=== PATIENT | female | born 1980 | race Caucasian/White ===

== ENCOUNTER → 2016-08-13 | Outpatient (CLI) | payer OTHER ==
[2016-06-28 16:50] VITALS: BP 122/80
[~2016-08-13] MED LIST: CIPR500T94 PO; HYDR-971 PO; IBUP200C PO; LISD30CA4 PO; METR500T PO; RISP1TAB51 PO; ZOLP5TAB PO
--- NOTE | 2016-08-13 09:33 | RAD ---
Chest, 2 views, 08/13/2016: History: Cough, chest congestion Comparison is made to a study from 07/01/2016. The heart size and pulmonary vascularity are normal. The lungs are clear. There is no evidence of pleural fluid. IMPRESSION: No acute cardiopulmonary abnormality is detected.
== END | disposition home or self-care (01) ==
LOC: DXRADRC 09:21
PROVIDERS: ATTEND Physician Assistant Medical
DX: R09.89 Other specified symptoms and signs involving the circulatory and respiratory systems (principal); R07.81 Pleurodynia
CPT/HCPCS: 71020

== ENCOUNTER 2017-02-16 07:28 | Emergency (ER) | payer OTHER ==
[~2017-02-16] VITALS: Ht 157.5 cm; Wt 50.8 kg
[~2017-02-16 07:28] MED LIST changes: -IBUP200C PO; +IBUP200C6 PO; -LISD30CA4 PO; +LISD30CA5 PO; -RISP1TAB51 PO; +[UNRECOGNIZED DRUG - CODE] PO
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
[2017-02-16] MEDS ORDERED: IV NORMAL SALINE 1,000ML 1,000 ML IV SCH (07:33)
[2017-02-16] MEDS ORDERED: DIPH,PERTUSS(ACELL),TET PED/PF 0.5 ML VIAL VAX IM ONE (07:45)
[2017-02-16] MEDS ORDERED: DIPHTH,PERTUSS(ACELL),TET TOX 0.5 ML DISP.SYRIN. VAX IM ONE (08:00)
[2017-02-16 08:06] LABS: BASO # 0.1 x10^3/uL (0.0-0.2); BASO % 0 % (0-3); EOS # 0.2 x10^3/uL (0.0-0.7); EOS % 1 % (0-3); HEMATOCRIT 39.2 % (36.0-47.0); HEMOGLOBIN 13.8 g/dL (12.0-15.5); LYMPH # 3.6 x10^3/uL (1.0-4.8); LYMPH % 26 % (24-48); MEAN CORPUSCULAR HEMOGLOBIN 33 pg (25-35); MEAN CORPUSCULAR HGB CONC 35 g/dL (31-37); MEAN CORPUSCULAR VOLUME 93 fL (79-100); MONO # 1.5 x10^3/uL (0.0-1.1); MONO % 11 % (0-9); NEUT # 8.9 x10^3uL (1.8-7.7); NEUT % 62 % (31-73); PLATELET COUNT 598 x10^3/uL (140-400); RED BLOOD COUNT 4.24 x10^6/uL (3.50-5.40); RED CELL DISTRIBUTION WIDTH 13.4 % (11.5-14.5); WHITE BLOOD COUNT 14.2 x10^3/uL (4.0-11.0)
[2017-02-16 08:31] LABS: ALBUMIN 3.4 g/dL (3.4-5.0); CALCIUM 8.9 mg/dL (8.5-10.1); CREATININE 0.7 mg/dL (0.6-1.0); DIRECT BILIRUBIN 0.1 mg/dL (0.0-0.2); GFR 94.2; TOTAL BILIRUBIN 0.1 mg/dL (0.2-1.0); TOTAL PROTEIN 7.5 g/dL (6.4-8.2)
--- NOTE | 2017-02-16 08:44 | RAD ---
EXAM: Chest 2 views. HISTORY: Inferior vena cava, chest pain. COMPARISON: 08/13/2016. FINDINGS: Frontal and lateral views of the chest are obtained. There are no confluent infiltrates. There is no pneumothorax or pleural effusion. The heart is not enlarged. IMPRESSION: 1. No confluent infiltrates.
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
[2017-02-16] MEDS ORDERED: LIDOCAINE/EPI/TETRACAINE TOPICAL GEL 3 ML. TP ONE (09:15)
[2017-02-16 09:55] VITALS: BP 141/71
[2017-02-16] MEDS ORDERED: ACETAMINOPHEN 500 MG TABLET PO ONE (10:00)
[2017-02-16 10:26] LABS: COLOR,URINE YELLOW
[2017-02-16 10:27] LABS: AMORPHOUS SEDIMENT,UR PRESENT /HPF; BACTERIA,URINE FEW /HPF (0-FEW); BILIRUBIN,URINE NEG (NEG); CLARITY,URINE HAZY; GLUCOSE,URINE NEG (NEG); NITRITE,URINE NEG (NEG); RBC,URINE RARE /HPF (0-2); SQUAMOUS EPITHELIAL CELL,UR MOD /LPF; UROBILINOGEN,URINE 0.2 mg/dL (0.2 mg/dL); WBC,URINE RARE /HPF (0-4)
[2017-02-16 10:34] LABS: BARBITURATES NEG (NEG); BENZODIAZEPINES NEG (NEG); CANNABINOIDS NEG (NEG); COCAINE NEG (NEG); METHADONE NEG (NEG); OPIATES NEG (NEG); PHENCYCLIDINE NEG (NEG)
[2017-02-16 10:35] LABS: AMPHETAMINE/METHAMPHETAMINE POS (NEG)
--- NOTE | 2017-02-16 18:47 | EKG ---
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
== END 2017-02-16 10:48 | disposition other institution (70) ==
LOC: ER 07:28
DX: S01.01XA Laceration without foreign body of scalp, initial encounter (principal); M54.2 Cervicalgia; M25.512 Pain in left shoulder; F17.210 Nicotine dependence, cigarettes, uncomplicated; F12.10 Cannabis abuse, uncomplicated; F15.10 Other stimulant abuse, uncomplicated; V89.2XXA Person injured in unspecified motor-vehicle accident, traffic, initial encounter; Y93.89 Activity, other specified; Y99.8 Other external cause status; Y92.89 Other specified places as the place of occurrence of the external cause
CPT/HCPCS: 12001; 36415; 70450; 70486; 71020; 72125; 80048; 80076; 80307; 81001; 82553; 83690; 84484; 85025; 85610; 85730; 90471; 90715; 93005; 96360; 96361; 99285; G0480; G0479; J7030

== ENCOUNTER 2017-04-03 11:21 | Emergency (ER) | payer OTHER ==
[~2017-04-03] VITALS: Ht 157.5 cm; Wt 52.2 kg
[2017-04-03 11:38] VITALS: BP 111/73
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
== END 2017-04-03 11:49 | disposition home or self-care (01) ==
LOC: ER 11:21
DX: S01.01XD Laceration without foreign body of scalp, subsequent encounter (principal); F17.210 Nicotine dependence, cigarettes, uncomplicated; X58.XXXD Exposure to other specified factors, subsequent encounter
CPT/HCPCS: 99281

== ENCOUNTER → 2017-06-10 | Outpatient (CLI) | payer OTHER ==
--- NOTE | 2017-06-10 11:59 | RAD ---
Right foot, 2 views, 06/10/2017: History: Foot pain There are radiopacities related to a sock partially compromising the exam. No fracture or destructive bony lesion is seen. There is a slight hallux valgus deformity. IMPRESSION: No acute bony abnormality is detected.
== END | disposition home or self-care (01) ==
LOC: PMG 11:16
PROVIDERS: ATTEND Physician Assistant Medical
DX: M79.671 Pain in right foot (principal); M20.11 Hallux valgus (acquired), right foot; F17.200 Nicotine dependence, unspecified, uncomplicated
CPT/HCPCS: 73620

== ENCOUNTER → 2017-07-01 | Outpatient (CLI) | payer OTHER ==
--- NOTE | 2017-07-01 15:54 | RAD ---
2 views of the Chest 07/01/2017 2:00 AM Indication: CHEST CONGESTION Comparison: Chest radiograph February 16, 2017 Findings: There is no focal consolidation or infiltrate identified. There is no effusion or pneumothorax. The cardiomediastinal silhouette and pulmonary vasculature are within normal limits. No osseous abnormality is identified. Impression: No evidence of acute cardiopulmonary process.
== END | disposition home or self-care (01) ==
LOC: PMG 15:32
PROVIDERS: ATTEND Physician Assistant Medical
DX: R09.89 Other specified symptoms and signs involving the circulatory and respiratory systems (principal); F17.210 Nicotine dependence, cigarettes, uncomplicated
CPT/HCPCS: 71046

== ENCOUNTER 2017-08-19 13:22 | Emergency (ER) | payer OTHER ==
[~2017-08-19] VITALS: Ht 157.5 cm; Wt 53.6 kg
[~2017-08-19 13:22] MED LIST changes: +RISP1TAB10 PO; -[UNRECOGNIZED DRUG - CODE] PO
--- NOTE | 2017-08-19 14:19 | PHYS DOC ---
Past History Past Medical History: Bipolar Past Surgical History: Tonsillectomy Smoking: Cigarettes, Greater than 1 pack/day Alcohol Use: Occasionally Drug Use: None Adult General Chief Complaint Chief Complaint: MEDICAL CLEARANCE HPI HPI Patient is a 36 year old F who presents for medical screening prior to being admitted for drug rehabilitation. Ramone states that she is a meth user and she is looking for help. She was told to come to the emergency room for medical screening. She currently denies any abnormal symptoms. Review of Systems Review of Systems Constitutional: Denies fever or chills [] Eyes: Denies change in visual acuity, redness, or eye pain [] HENT: Denies nasal congestion or sore throat [] Respiratory: Denies cough or shortness of breath [] Cardiovascular: No additional information not addressed in HPI [] GI: Denies abdominal pain, nausea, vomiting, bloody stools or diarrhea [] : Denies dysuria or hematuria [] Musculoskeletal: Denies back pain or joint pain [] Integument: Denies rash or skin lesions [] Neurologic: Denies headache, focal weakness or sensory changes [] Endocrine: Denies polyuria or polydipsia [] All other systems were reviewed and found to be within normal limits, except as documented in this note. Family History Family History No pertinent family medical history was reported Current Medications Current Medications Current medications were reviewed Allergies Allergies Allergies Coded Allergies Type Severity Reaction Last Updated Verified No Known Drug Allergies 07/16/13 No Physical Exam Physical Exam Constitutional: Well developed, well nourished, no acute distress, non-toxic appearance. [] HENT: Normocephalic, atraumatic, Eyes: EOMI, conjunctiva normal, no discharge. [] Neck: Normal range of motion, no tenderness, supple, no stridor. [] Cardiovascular:Heart rate regular rhythm Lungs & Thorax: Bilateral breath sounds clear to auscultation [] Abdomen: Bowel sounds normal, soft, no tenderness, no masses, no pulsatile masses. [] Skin: Warm, dry, no erythema, no rash. [] Extremities: No tenderness, no cyanosis, no clubbing, ROM intact, no edema. [] Neurologic: Alert and oriented X 3, normal motor function, normal sensory function, no focal deficits noted. [] Psychologic: Affect normal, judgement normal, mood normal. [] Current Patient Data Vital Signs Vital Signs Date Time Temp Pulse Resp B/P (MAP) Pulse Ox O2 Delivery O2 Flow Rate FiO2 08/19/17 13:22 98.3 73 18 98 Room Air Lab Results Laboratory Tests Test 08/19/17 14:40 Urine Collection Type Void Urine Color Yellow Urine Clarity Hazy Urine pH 7.0 Urine Specific [place] 1.020 Urine Protein Trace (NEG-TRACE) Urine Glucose (UA) Neg mg/dL (NEG) Urine Ketones (Stick) Neg mg/dL (NEG) Urine Blood Neg (NEG) Urine Nitrite Neg (NEG) Urine Bilirubin Neg (NEG) Urine Urobilinogen Dipstick 1 mg/dL (0.2 mg/dL) Urine Leukocyte Esterase Neg (NEG) Urine RBC Rare /HPF (0-2) Urine WBC Rare /HPF (0-4) Urine Squamous Epithelial Cells Many /LPF Urine Bacteria 0 /HPF (0-FEW) Urine Mucus Mod /LPF EKG EKG Normal sinus rhythm Radiology/Procedures Radiology/Procedures [] Course & Med Decision Making Course & Med Decision Making Pertinent Labs and Imaging studies reviewed. (See chart for details) [] Dragon Disclaimer Dragon Disclaimer This electronic medical record was generated, in whole or in part, using a voice recognition dictation system. Departure Departure: Impression: Primary Impression: Encounter for medical screening examination Disposition: HOME, SELF-CARE Condition: STABLE Referrals: SAMARIA HASTINGS (PCP) Patient Instructions: Medical Screening Exam Additional Instructions: Ramone was seen in the emergency department for medical screening exam. No emergency medical condition was found on history or physical exam. She did have a normal EKG and urinalysis. She was advised to follow-up with her primary care doctor as soon as possible for further management. She was also advised to return the emergency room if she develops new or worsening symptoms. GLORIA MARIA MD Aug 19, 2017 14:19
[2017-08-19 14:56] LABS: BACTERIA,URINE 0 /HPF (0-FEW); BILIRUBIN,URINE NEG (NEG); CLARITY,URINE HAZY; COLOR,URINE YELLOW; GLUCOSE,URINE NEG (NEG); NITRITE,URINE NEG (NEG); RBC,URINE RARE /HPF (0-2); SQUAMOUS EPITHELIAL CELL,UR MANY /LPF; UROBILINOGEN,URINE 1 mg/dL (0.2 mg/dL); WBC,URINE RARE /HPF (0-4)
[2017-08-19 15:10] VITALS: BP 113/62
--- NOTE | 2017-08-19 16:12 | EKG ---
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
== END 2017-08-19 15:10 | disposition home or self-care (01) ==
LOC: ER 13:22
DX: F31.9 Bipolar disorder, unspecified (principal); F17.210 Nicotine dependence, cigarettes, uncomplicated; Z00.00 Encounter for general adult medical examination without abnormal findings
CPT/HCPCS: 81001; 93005; 99285-25

== ENCOUNTER 2017-10-02 20:52 | Emergency (ER) | payer OTHER ==
[~2017-10-02] VITALS: Ht 157.5 cm; Wt 52.2 kg
[2017-10-02] MEDS ORDERED: IOHEXOL 300 MG/ML 75 ML VIAL. IV ONE (21:15)
[2017-10-02] MEDS: IV NORMAL SALINE 1,000ML 1,000 ML IV SCH ×2 (21:15→22:15)
[2017-10-02 22:14] LABS: BASO # 0.1 x10^3/uL (0.0-0.2); BASO % 1 % (0-3); EOS # 0.2 x10^3/uL (0.0-0.7); EOS % 2 % (0-3); HEMOGLOBIN 12.1 g/dL (12.0-15.5); LYMPH # 3.4 x10^3/uL (1.0-4.8); LYMPH % 28 % (24-48); MEAN CORPUSCULAR HEMOGLOBIN 32 pg (25-35); MEAN CORPUSCULAR HGB CONC 35 g/dL (31-37); MEAN CORPUSCULAR VOLUME 94 fL (79-100); MONO # 1.1 x10^3/uL (0.0-1.1); MONO % 9 % (0-9); NEUT # 7.6 x10^3uL (1.8-7.7); NEUT % 62 % (31-73); PLATELET COUNT 344 x10^3/uL (140-400); RED BLOOD COUNT 3.73 x10^6/uL (3.50-5.40); RED CELL DISTRIBUTION WIDTH 13.4 % (11.5-14.5); WHITE BLOOD COUNT 12.4 x10^3/uL (4.0-11.0)
[2017-10-02 22:22] LABS: ALBUMIN 3.6 g/dL (3.4-5.0); ALBUMIN/GLOBULIN RATIO 1.3 (1.0-1.7); CALCIUM 8.2 mg/dL (8.5-10.1); CREATININE 0.8 mg/dL (0.6-1.0); GFR 80.3; TOTAL BILIRUBIN 0.2 mg/dL (0.2-1.0); TOTAL PROTEIN 6.4 g/dL (6.4-8.2)
[2017-10-02 22:27] LABS: BACTERIA,URINE MANY /HPF (0-FEW); BILIRUBIN,URINE NEG (NEG); CLARITY,URINE CLOUDY; COLOR,URINE YELLOW; GLUCOSE,URINE NEG (NEG); NITRITE,URINE POS (NEG); SQUAMOUS EPITHELIAL CELL,UR MOD /LPF; UROBILINOGEN,URINE 0.2 mg/dL (0.2 mg/dL)
--- NOTE | 2017-10-02 23:05 | RAD ---
Exam performed: CT scan of the abdomen and pelvis without contrast. Clinical Indication: Chronic flank pain. Date of Service: 10/02/2017 . Comparison: None available Technique: Contiguous helical acquisitions are obtained through the abdomen and pelvis during intravenous administration of 75 cc of Omnipaque 300. Oral contrast was not given. Sagittal and coronal reformatted images are obtained and reviewed. CT abdomen findings: The lung bases are essentially clear. The visualized heart is normal. The liver, spleen, pancreas and gallbladder appear normal. Both adrenal glands and bilateral kidneys are normal in size. There is no nephrolithiasis or hydronephrosis. No perinephric stranding is seen. Aorta is normal in caliber. No retroperitoneal or mesenteric lymphadenopathy. Small and large bowel loops are nondilated and unremarkable. Scattered stool throughout the colon. CT pelvis findings: The pelvic bowel loops are nondilated and unremarkable. The urinary bladder is decompressed. The uterus is likely surgically absent. There is a 3.1 cm left ovarian cyst. No fluid collections or pelvic lymphadenopathy. Bones are unremarkable. Impression: No acute intra-abdominal or pelvic process noted. 3.1 cm left ovarian cyst, likely physiological Diffuse scattered stool throughout the colon. Correlate clinically for constipation PQRS Compliance Statement: One or more of the following individualized dose reduction techniques were utilized for this examination: 1. Automated exposure control 2. Adjustment of the mA and/or kV according to patient size 3. Use of iterative reconstruction technique Electronically signed by: Mary Bee MD (10/02/2017 11:02 PM) [facility]
[2017-10-02] MEDS ORDERED: CEPH-264 PO (23:23)
--- NOTE | 2017-10-02 23:24 | PHYS DOC ---
Past History Past Medical History: Bipolar, Depression, Other Past Surgical History: Tonsillectomy, Other Smoking: Cigarettes, Greater than 1 pack/day Alcohol Use: Occasionally Drug Use: Methamphetamine Adult General Chief Complaint Chief Complaint: ABDOMINAL PAIN HPI HPI 37-year-old female with a history of chronic abdominal pain as well as methamphetamine abuse now presents to the emergency department complaining of gradual onset of abdominal pain typical for her. Patient has no vomiting or diarrhea. She denies flank pain. No fevers chills sweats or shaking chills. Pain is not worse with movement. Abdomen is not distended. She's had a partial hysterectomy previously. Denies right upper quadrant or right lower quadrant pain Review of Systems Review of Systems Constitutional: Denies fever or chills [] Eyes: Denies change in visual acuity, redness, or eye pain [] HENT: Denies nasal congestion or sore throat [] Respiratory: Denies cough or shortness of breath [] Cardiovascular: No additional information not addressed in HPI [] GI: Denies abdominal pain, nausea, vomiting, bloody stools or diarrhea [] : Denies dysuria or hematuria [] Musculoskeletal: Denies back pain or joint pain [] Integument: Denies rash or skin lesions [] Neurologic: Denies headache, focal weakness or sensory changes [] Endocrine: Denies polyuria or polydipsia [] All other systems were reviewed and found to be within normal limits, except as documented in this note. Current Medications Current Medications Current Medications Medications (Trade) Dose Ordered Sig/Timo Start Time Stop Time Status Last Admin Dose Admin Iohexol (Omnipaque 300 Mg/ml) 75 ml 1X ONCE 10/02/17 21:15 10/02/17 21:16 DC 10/02/17 22:26 75 ML Sodium Chloride 1,000 ml @ 1,000 mls/hr Q1H 10/02/17 21:15 10/02/17 21:15 1,000 MLS/HR Allergies Allergies Allergies Coded Allergies Type Severity Reaction Last Updated Verified Penicillins Allergy Unknown 08/19/17 Yes olanzapine Allergy Unknown 08/19/17 Yes sulfamethoxazole Allergy Unknown 08/19/17 Yes trimethoprim Allergy Unknown 08/19/17 Yes Uncoded Allergies Type Severity Reaction Last Updated Verified tajik rice Allergy Unknown 08/19/17 Physical Exam Physical Exam Patient is alert and communicative but mildly restless appearing possibly consistent with her history of methamphetamine abuse, minimal suprapubic tenderness no guarding or rebound no mass or megaly. Nontender McBurney's point and negative [place] sign. No CVA tenderness. No epigastric tenderness, bowel sounds Constitutional: Well developed, well nourished, no acute distress, non-toxic appearance. [] HENT: Normocephalic, atraumatic, bilateral external ears normal, oropharynx moist, no oral exudates, nose normal. [] Eyes: PERRLA, EOMI, conjunctiva normal, no discharge. [] Neck: Normal range of motion, no tenderness, supple, no stridor. [] Cardiovascular:Heart rate regular rhythm, no murmur [] Lungs & Thorax: Bilateral breath sounds clear to auscultation [] Abdomen as above, no masses, no pulsatile masses. [] Skin: Warm, dry, no erythema, no rash. [] Back: No tenderness, no CVA tenderness. [] Extremities: No tenderness, no cyanosis, no clubbing, ROM intact, no edema. [] Neurologic: Alert and oriented X 3, normal motor function, normal sensory function, no focal deficits noted. [] Psychologic: Affect is mildly anxious Current Patient Data Lab Results Laboratory Tests Test 10/02/17 21:52 White Blood Count 12.4 x10^3/uL (4.0-11.0) H Red Blood Count 3.73 x10^6/uL (3.50-5.40) Hemoglobin 12.1 g/dL (12.0-15.5) Hematocrit 35.0 % (36.0-47.0) L Mean Corpuscular Volume 94 fL (79-100) Mean Corpuscular Hemoglobin 32 pg (25-35) Mean Corpuscular Hemoglobin Concent 35 g/dL (31-37) Red Cell Distribution Width 13.4 % (11.5-14.5) Platelet Count 344 x10^3/uL (140-400) Neutrophils (%) (Auto) 62 % (31-73) Lymphocytes (%) (Auto) 28 % (24-48) Monocytes (%) (Auto) 9 % (0-9) Eosinophils (%) (Auto) 2 % (0-3) Basophils (%) (Auto) 1 % (0-3) Neutrophils # (Auto) 7.6 x10^3uL (1.8-7.7) Lymphocytes # (Auto) 3.4 x10^3/uL (1.0-4.8) Monocytes # (Auto) 1.1 x10^3/uL (0.0-1.1) Eosinophils # (Auto) 0.2 x10^3/uL (0.0-0.7) Basophils # (Auto) 0.1 x10^3/uL (0.0-0.2) Urine Collection Type Unknown Urine Color Yellow Urine Clarity Cloudy Urine pH 6.5 Urine Specific [place] 1.015 Urine Protein Neg (NEG-TRACE) Urine Glucose (UA) Neg mg/dL (NEG) Urine Ketones (Stick) Neg mg/dL (NEG) Urine Blood Neg (NEG) Urine Nitrite Pos (NEG) Urine Bilirubin Neg (NEG) Urine Urobilinogen Dipstick 0.2 mg/dL (0.2 mg/dL) Urine Leukocyte Esterase Neg (NEG) Urine RBC 1-2 /HPF (0-2) Urine WBC 11-20 /HPF (0-4) Urine Squamous Epithelial Cells Mod /LPF Urine Bacteria Many /HPF (0-FEW) Sodium Level 139 mmol/L (136-145) Potassium Level 4.0 mmol/L (3.5-5.1) Chloride Level 105 mmol/L (98-107) Carbon Dioxide Level 24 mmol/L (21-32) Anion Gap 10 (6-14) Blood Urea Nitrogen 10 mg/dL (7-20) Creatinine 0.8 mg/dL (0.6-1.0) Estimated GFR (Cockcroft-Gault) 80.3 BUN/Creatinine Ratio 13 (6-20) Glucose Level 103 mg/dL (70-99) H Calcium Level 8.2 mg/dL (8.5-10.1) L Total Bilirubin 0.2 mg/dL (0.2-1.0) Aspartate Amino Transferase (AST) 12 U/L (15-37) L Alanine Aminotransferase (ALT) 20 U/L (14-59) Alkaline Phosphatase 67 U/L (46-116) Total Protein 6.4 g/dL (6.4-8.2) Albumin 3.6 g/dL (3.4-5.0) Albumin/Globulin Ratio 1.3 (1.0-1.7) Lipase 216 U/L (73-393) EKG EKG [] Radiology/Procedures Radiology/Procedures [] Course & Med Decision Making Course & Med Decision Making Pertinent Labs and Imaging studies reviewed. (See chart for details) []Signs and symptoms consistent with exacerbation of patient's chronic abdominal pain. She does have a chronic leukocytosis and her white blood cell count today is unremarkable compared with prior results. Labs are otherwise benign. Urinalysis consistent with infection and patient will be prescribed an antibiotic. CT abdomen and pelvis shows signs of constipation as well as 3 fragments of your left ovarian cyst. She stable and well-appearing. Patient is able ambulate around the emergency department and in a room with no apparent discomfort whatsoever. No further workup or treatment is indicated. Patient agrees with outpatient follow-up with her doctor tomorrow and strict return precautions given Dragon Disclaimer Dragon Disclaimer This electronic medical record was generated, in whole or in part, using a voice recognition dictation system. Departure Departure: Impression: Primary Impression: Abdominal pain Additional Impressions: Constipation Hx of leukocytosis Left ovarian cyst Urinary tract infection Disposition: 01 HOME, SELF-CARE Condition: GOOD Referrals: AILYN MCMAHON APRN (PCP) Patient Instructions: Abdominal Pain Additional Instructions: You have no evidence of abdominal emergency today. The CAT scan of her abdomen shows some mild constipation. Consider [id number] treatments such as MiraLAX or mineral oil and eat a high-fiber diet to optimize her bowel habits. Your white blood cell count was mildly elevated which it has been in the past. You have a 3.1 cm left ovarian cyst. You been given a copy of her CT result to follow up with your doctor to discuss these incidental findings and arrange further workup as needed. Your urinalysis suggests that he may have urinary tract infection see you been given a prescription for Keflex to address this. Finish that as prescribed. Follow-up with your doctor tomorrow and return immediately for new severe worsening symptoms Scripts Cephalexin (KEFLEX) 500 Mg Capsule 500 MG PO QID for 7 Days, #28 CAP Prov: CORWIN AMOS MD 10/02/17 Problem Qualifiers CORWIN AMOS MD October 02, 2017 23:24
[2017-10-02] MEDS ORDERED: CEPHALEXIN 250 MG CAPSULE PO ONE (23:45)
== END 2017-10-02 23:35 | disposition home or self-care (01) ==
LOC: ER 20:52
DX: N39.0 Urinary tract infection, site not specified (principal); K59.00 Constipation, unspecified; N83.202 Unspecified ovarian cyst, left side; G89.29 Other chronic pain; F31.9 Bipolar disorder, unspecified; F17.210 Nicotine dependence, cigarettes, uncomplicated; F15.10 Other stimulant abuse, uncomplicated; Z88.0 Allergy status to penicillin; Z88.1 Allergy status to other antibiotic agents; Z88.2 Allergy status to sulfonamides; Z88.8 Allergy status to other drugs, medicaments and biological substances
CPT/HCPCS: 36415; 74177; 80053; 81001; 83690; 85025; 99285; Q9967; J7030

== ENCOUNTER 2017-10-19 15:40 | Emergency (ER) | payer OTHER ==
[~2017-10-19] VITALS: Ht 157.5 cm; Wt 54.0 kg
[~2017-10-19 15:40] MED LIST changes: +CEPH-264 PO
[2017-10-19] MEDS ORDERED: HYDROcodon/IBUPROFEN 7.5/200MG 1 TAB TABLET PO ONE (18:00)
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
[2017-10-19 18:10] VITALS: BP 121/72
== END 2017-10-19 18:10 | disposition home or self-care (01) ==
LOC: ER 15:40
DX: S60.451A Superficial foreign body of left index finger, initial encounter (principal); F31.9 Bipolar disorder, unspecified; F17.210 Nicotine dependence, cigarettes, uncomplicated; F15.10 Other stimulant abuse, uncomplicated; Z88.0 Allergy status to penicillin; Z88.1 Allergy status to other antibiotic agents; Z88.2 Allergy status to sulfonamides; Z88.8 Allergy status to other drugs, medicaments and biological substances; X58.XXXA Exposure to other specified factors, initial encounter; Y93.89 Activity, other specified; Y99.8 Other external cause status; Y92.89 Other specified places as the place of occurrence of the external cause
CPT/HCPCS: 99284

== ENCOUNTER 2018-04-06 17:57 | Emergency (ER) | payer OTHER ==
[~2018-04-06] VITALS: Ht 157.5 cm; Wt 50.3 kg
[~2018-04-06 17:57] MED LIST changes: +IBUP-1390 PO; -IBUP200C6 PO
[2018-04-06] MEDS ORDERED: LORA2TAB89 PO (19:17)
--- NOTE | 2018-04-06 19:17 | PHYS DOC ---
Past History Past Medical History: Anxiety, Bipolar, Depression Past Surgical History: , Hysterectomy, Tonsillectomy, Tubal ligation Smoking: Cigarettes, Greater than 1 pack/day Alcohol Use: Occasionally Drug Use: Methamphetamine Adult General Chief Complaint Chief Complaint: WITHDRAWL HPI HPI Patient is a 37 year old female who presents to the emergency department for medical evaluation. The patient states that she was instructed to come to the emergency department for medical clearance. The patient has been accepted to [facility] in [place], [place]. Patient states that she has history of alcohol and methamphetamine abuse area patient states she last used methamphetamine at 0230 this morning and states that she last drank alcohol proximate 1 hour ago. Patient states that she has been in a treatment center in the past and has history of what was reported as withdrawal seizure. For this reason the patient was instructed to come to the emergency department for medical evaluation prior to acceptance. Patient denies any somatic symptoms at this time. Review of Systems Review of Systems Constitutional: Denies fever or chills [] Eyes: Denies change in visual acuity, redness, or eye pain [] HENT: Denies nasal congestion or sore throat [] Respiratory: Denies cough or shortness of breath [] Cardiovascular: Denies chest pain or edema[] GI: Denies abdominal pain, nausea, vomiting, bloody stools or diarrhea [] : Denies dysuria or hematuria [] Musculoskeletal: Denies back pain or joint pain [] Integument: Denies rash or skin lesions [] Neurologic: Denies headache, focal weakness or sensory changes [] All other systems were reviewed and found to be within normal limits, except as documented in this note. Allergies Allergies Allergies Coded Allergies Type Severity Reaction Last Updated Verified Penicillins Allergy Unknown 08/19/17 Yes olanzapine Allergy Unknown 08/19/17 Yes sulfamethoxazole Allergy Unknown 08/19/17 Yes trimethoprim Allergy Unknown 08/19/17 Yes Uncoded Allergies Type Severity Reaction Last Updated Verified pitcairn islander rice Allergy Unknown 08/19/17 Physical Exam Physical Exam Constitutional: Well developed, well nourished, no acute distress, non-toxic appearance. [] HENT: Normocephalic, atraumatic, bilateral external ears normal, oropharynx moist, no oral exudates, nose normal. [] Eyes: PERRLA, EOMI, conjunctiva normal, no discharge. [] Neck: Normal range of motion, no tenderness, supple, no stridor. [] Cardiovascular:Heart rate regular rhythm, no murmur [] Lungs & Thorax: Bilateral breath sounds clear to auscultation [] Abdomen: Bowel sounds normal, soft, no tenderness, no masses, no pulsatile masses. [] Skin: Warm, dry, no erythema, no rash. [] Back: No tenderness, no CVA tenderness. [] Extremities: No tenderness, no cyanosis, no clubbing, ROM intact, no edema. [] Neurologic: Alert and oriented X 3, normal motor function, normal sensory function, no focal deficits noted. [] Current Patient Data Vital Signs Vital Signs Date Time Temp Pulse Resp B/P (MAP) Pulse Ox O2 Delivery O2 Flow Rate FiO2 04/06/18 18:20 98.5 100 20 99 Room Air Lab Results Not performed EKG EKG Not performed[] Radiology/Procedures Radiology/Procedures Not performed[] Course & Med Decision Making Course & Med Decision Making Pertinent Labs and Imaging studies reviewed. (See chart for details) Patient appears nontoxic at this time. Due to history of withdrawal seizure, I have prescribed the patient Ativan. This was confirmed to be able to be administered to the patient while in her treatment center. Patient was medically cleared to be accepted to her treatment center and will be taken by a close friend to the treatment Center upon discharge. Advised return to emergency department for any worsening symptoms. Patient was understanding and agreement with treatment plan. Dragon Disclaimer Dragon Disclaimer This electronic medical record was generated, in whole or in part, using a voice recognition dictation system. Departure Departure: Impression: Primary Impression: Alcoholism Additional Impression: Methamphetamine abuse Disposition: 01 HOME, SELF-CARE Referrals: PCP,MARY (PCP) Patient Instructions: Alcohol Withdrawal, Chronic Alcoholism, Substance Abuse- Brief Additional Instructions: You have been instructed to fill the prescription that was given to you at today 's visit immediately after discharge. This will need to be taken to your treatment Center at [facility] and be given as needed for your symptoms. Please return to emergency department for any worsening symptoms. Scripts Lorazepam (ATIVAN) 2 Mg Tablet 2 MG PO TID PRN for ANXIETY / AGITATION, #30 TAB Prov: SHARRI GAMING MD 04/06/18 Problem Qualifiers SHARRI GAMING MD Apr 06, 2018 19:17
[2018-04-06 19:20] VITALS: BP 130/81
== END 2018-04-06 19:21 | disposition home or self-care (01) ==
LOC: ER 17:57
DX: F10.20 Alcohol dependence, uncomplicated (principal); F15.10 Other stimulant abuse, uncomplicated; F41.9 Anxiety disorder, unspecified; F31.9 Bipolar disorder, unspecified; F17.210 Nicotine dependence, cigarettes, uncomplicated; Z88.0 Allergy status to penicillin; Z88.1 Allergy status to other antibiotic agents; Z88.2 Allergy status to sulfonamides; Z88.8 Allergy status to other drugs, medicaments and biological substances
CPT/HCPCS: 99283

== ENCOUNTER 2018-05-16 14:16 | Emergency (ER) | payer OTHER ==
[~2018-05-16] VITALS: Ht 157.5 cm; Wt 49.4 kg
[~2018-05-16 14:16] MED LIST changes: +HYDR-3165 PO; -HYDR-971 PO; +LORA2TAB89 PO
[2018-05-16] MEDS ORDERED: [UNRECOGNIZED DRUG - CODE] TP (14:55)
[2018-05-16] MEDS ORDERED: ACET-704 PO (14:55)
[2018-05-16] MEDS: LIDOCAINE 2% VISCOUS 15 ML SOLUTION. SWSW ONE (14:55)
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
[2018-05-16] MEDS: traMADol 50 MG TABLET PO ONE (15:02)
[2018-05-16 15:45] VITALS: BP 141/71
== END 2018-05-16 15:46 | disposition home or self-care (01) ==
LOC: ER 14:16
DX: T24.211A Burn of second degree of right thigh, initial encounter (principal); F41.9 Anxiety disorder, unspecified; F31.9 Bipolar disorder, unspecified; F17.210 Nicotine dependence, cigarettes, uncomplicated; Z88.0 Allergy status to penicillin; Z88.1 Allergy status to other antibiotic agents; Z88.8 Allergy status to other drugs, medicaments and biological substances; X08.8XXA Exposure to other specified smoke, fire and flames, initial encounter; Y93.89 Activity, other specified; Y92.091 Bathroom in other non-institutional residence as the place of occurrence of the external cause; Y99.8 Other external cause status
CPT/HCPCS: 99283

== ENCOUNTER 2018-05-18 12:17 | Emergency (ER) | payer OTHER ==
[~2018-05-18] VITALS: Ht 157.5 cm; Wt 49.4 kg
[~2018-05-18 12:17] MED LIST changes: +ACET-704 PO; +[UNRECOGNIZED DRUG - CODE] TP
[2018-05-18 12:37] VITALS: BP 99/45
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
== END 2018-05-18 13:01 | disposition home or self-care (01) ==
LOC: ER 12:52
DX: T24.201D Burn of second degree of unspecified site of right lower limb, except ankle and foot, subsequent encounter (principal); F41.9 Anxiety disorder, unspecified; J45.909 Unspecified asthma, uncomplicated; F31.9 Bipolar disorder, unspecified; G43.909 Migraine, unspecified, not intractable, without status migrainosus; F17.210 Nicotine dependence, cigarettes, uncomplicated; Z88.0 Allergy status to penicillin; Z88.1 Allergy status to other antibiotic agents; Z88.2 Allergy status to sulfonamides; Z88.8 Allergy status to other drugs, medicaments and biological substances; X08.8XXD Exposure to other specified smoke, fire and flames, subsequent encounter
CPT/HCPCS: 99281; 99282

== ENCOUNTER 2018-06-28 19:36 | Inpatient (IN) | payer OTHER ==
[~2018-06-28] VITALS: Ht 157.5 cm; Wt 50.0 kg
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
[2018-06-28] MEDS ORDERED: IV RINGERS SOLUTION,LACTATED 1,000 ML IV SCH (20:18)
[2018-06-28] MEDS ORDERED: VANCOMYCIN 1 GM in IV NORMAL SALINE 250ML 250 ML IV ONE (20:30)
[2018-06-28 20:41] LABS: BASO # 0.1 x10^3/uL (0.0-0.2); BASO % 0 % (0-3); EOS # 0.2 x10^3/uL (0.0-0.7); EOS % 1 % (0-3); HEMATOCRIT 35.8 % (36.0-47.0); HEMOGLOBIN 12.2 g/dL (12.0-15.5); LYMPH % 10 % (24-48); MEAN CORPUSCULAR HEMOGLOBIN 32 pg (25-35); MEAN CORPUSCULAR HGB CONC 34 g/dL (31-37); MEAN CORPUSCULAR VOLUME 94 fL (79-100); MONO # 1.6 x10^3/uL (0.0-1.1); MONO % 8 % (0-9); NEUT # 16.4 x10^3uL (1.8-7.7); NEUT % 81 % (31-73); PLATELET COUNT 401 x10^3/uL (140-400); RED BLOOD COUNT 3.83 x10^6/uL (3.50-5.40); RED CELL DISTRIBUTION WIDTH 13.8 % (11.5-14.5); WHITE BLOOD COUNT 20.2 x10^3/uL (4.0-11.0)
[2018-06-28] MEDS ORDERED: MORPHINE SULFATE 10 MG/ML SYRINGE. SQ ONE (20:45)
[2018-06-28] MEDS ORDERED: IV NORMAL SALINE 250ML 250 ML ONE (20:45)
[2018-06-28] MEDS ORDERED: KETOROLAC 30 MG/ML VIAL. IV ONE (20:45)
[2018-06-28] MEDS ORDERED: VANCOMYCIN 1 GM VIAL. ONE (20:45)
[2018-06-28 20:52] LABS: ALBUMIN 3.4 g/dL (3.4-5.0); ALK PHOS 79 U/L (46-116); ALT (SGPT) 22 U/L (14-59); ANION GAP 6 (6-14); AST (SGOT) 13 U/L (15-37); BLOOD UREA NITROGEN 15 mg/dL (7-20); CALCIUM 8.5 mg/dL (8.5-10.1); CARBON DIOXIDE 30 mmol/L (21-32); CHLORIDE 104 mmol/L (98-107); CREATININE 0.7 mg/dL (0.6-1.0); DIRECT BILIRUBIN < 0.1 mg/dL (0.0-0.2); GFR 93.6; GLUCOSE 81 mg/dL (70-99); LIPASE 138 U/L (73-393); POTASSIUM 3.1 mmol/L (3.5-5.1); SODIUM 140 mmol/L (136-145); TOTAL BILIRUBIN 0.2 mg/dL (0.2-1.0); TOTAL PROTEIN 7.8 g/dL (6.4-8.2)
[2018-06-28 21:13] LABS: % EOS 1 % (0-5); % LYMPHS 9 % (24-48); % MONOS 6 % (0-10); % SEGS 84 % (35-66); PLT ESTIMATE INCREASED (ADEQUATE)
[2018-06-28] MEDS ORDERED: ONDANSETRON PF 4 MG/2 ML VIAL. IV PRN (21:30)
[2018-06-28] MEDS ORDERED: MORPHINE SULFATE 10 MG/ML SYRINGE. SQ PRN (21:30)
--- NOTE | 2018-06-28 21:44 | RAD ---
Right tibia and fibula 2 views. HISTORY: Severe right lower leg pain, redness, Nur one month ago AP and lateral views were taken of the right tibia and fibula. There is no fracture or osseous abnormality. There is evidence of soft tissue injury. IMPRESSION: 1. Soft tissue changes especially posteriorly. 2. No fracture or osseous abnormality. Electronically signed by: Ryan Amor MD (06/28/2018 9:39 PM) [facility]
[2018-06-28] MEDS: VANCOMYCIN PER PHARMACY MC PRN (22:32)
[2018-06-28 23:15] VITALS: BP 116/71
[2018-06-29] MEDS ORDERED: POTASSIUM CHLORIDE 20 MEQ TABLET.ER. PO ONE (00:30)
[2018-06-29] MEDS: IV RINGERS SOLUTION,LACTATED 1,000 ML IV SCH ×5 (00:46→18:12)
[2018-06-29] MEDS ORDERED: ACETAMINOPHEN/COD PO (01:42)
[2018-06-29] MEDS ORDERED: SUMA50TA4 PO (01:42)
[2018-06-29] MEDS ORDERED: DICY20TA3 PO (01:42)
[2018-06-29] MEDS ORDERED: ALBU2.5V8 PO (01:42)
[2018-06-29] MEDS ORDERED: DIVA250T14 PO (01:42)
[2018-06-29] MEDS ORDERED: IBUP400T18 PO (01:42)
[2018-06-29 05:40] VITALS: BP 107/64
[2018-06-29] MEDS: MORPHINE SULFATE 4 MG/ML DISP.SYRIN. IV PRN ×2 (06:13→16:45)
[2018-06-29 06:27] LABS: BASO % 0 % (0-3); EOS # 0.2 x10^3/uL (0.0-0.7); EOS % 2 % (0-3); HEMATOCRIT 33.5 % (36.0-47.0); HEMOGLOBIN 11.3 g/dL (12.0-15.5); LYMPH # 2.2 x10^3/uL (1.0-4.8); LYMPH % 17 % (24-48); MEAN CORPUSCULAR HEMOGLOBIN 32 pg (25-35); MEAN CORPUSCULAR HGB CONC 34 g/dL (31-37); MEAN CORPUSCULAR VOLUME 94 fL (79-100); MONO # 1.4 x10^3/uL (0.0-1.1); MONO % 11 % (0-9); NEUT # 9.3 x10^3uL (1.8-7.7); NEUT % 71 % (31-73); PLATELET COUNT 329 x10^3/uL (140-400); RED BLOOD COUNT 3.56 x10^6/uL (3.50-5.40); WHITE BLOOD COUNT 13.2 x10^3/uL (4.0-11.0)
[2018-06-29 06:33] LABS: CREATININE 0.6 mg/dL (0.6-1.0); GFR 111.9; POTASSIUM 4.1 mmol/L (3.5-5.1)
[2018-06-29 06:43] LABS: BARBITURATES NEG (NEG); BENZODIAZEPINES NEG (NEG); CANNABINOIDS NEG (NEG); COCAINE NEG (NEG); METHADONE NEG (NEG); OPIATES POS (NEG); PHENCYCLIDINE NEG (NEG)
[2018-06-29 06:44] LABS: AMPHETAMINE/METHAMPHETAMINE POS (NEG)
[2018-06-29 06:51] LABS: BILIRUBIN,URINE NEG (NEG); CLARITY,URINE HAZY; COLOR,URINE YELLOW; GLUCOSE,URINE NEG (NEG)
[2018-06-29 06:52] LABS: BACTERIA,URINE MANY /HPF (0-FEW); NITRITE,URINE POS (NEG); SQUAMOUS EPITHELIAL CELL,UR MOD /LPF; UROBILINOGEN,URINE 1 mg/dL (0.2 mg/dL)
[2018-06-29 06:53] LABS: HYALINE CASTS, URINE OCC /HPF
[2018-06-29] MEDS: IPRATRPIUM/ALBUTEROL 0.5/2.5MG 3 ML NEBU. NEB SCH ×4 (08:00→19:48)
[2018-06-29] MEDS: VANCOMYCIN 750 MG in IV NORMAL SALINE 250ML 250 ML IV SCH ×2 (08:07→20:02)
[2018-06-29] MEDS: LACTOBACILLUS RHAMNOSUS GG 1 CAPSULE. PO SCH ×2 (08:07→21:58)
[2018-06-29] MEDS: ACETAMINOPHEN 500 MG TABLET PO PRN (08:07)
[2018-06-29] MEDS: KETOROLAC 30 MG/ML VIAL. IV PRN ×2 (08:07→18:12)
[2018-06-29 11:00] VITALS: BP 111/74
[2018-06-29 15:06] VITALS: BP 118/69
[2018-06-29] MEDS ORDERED: NICOTINE 21MG PATCH. TD ONE (18:06)
[2018-06-29] MEDS: NICOTINE 21MG PATCH. TD SCH (18:13)
[2018-06-29 19:50] VITALS: BP 96/79
[2018-06-29] MEDS: MEROPENEM 1 GM in IV NORMAL SALINE 100ML 100 ML IV SCH (21:58)
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
[2018-06-29 23:35] VITALS: BP 105/81
[2018-06-30] MEDS: IV RINGERS SOLUTION,LACTATED 1,000 ML IV SCH (01:43)
[2018-06-30 04:30] VITALS: BP 118/80
[2018-06-30] MEDS: IPRATRPIUM/ALBUTEROL 0.5/2.5MG 3 ML NEBU. NEB SCH ×2 (05:17→10:18)
[2018-06-30] MEDS: MORPHINE SULFATE 4 MG/ML DISP.SYRIN. IV PRN ×2 (05:28→11:36)
[2018-06-30] MEDS: MEROPENEM 1 GM in IV NORMAL SALINE 100ML 100 ML IV SCH ×2 (05:34→13:55)
[2018-06-30] MEDS ORDERED: IV NORMAL SALINE 1,000ML 1,000 ML IV SCH (07:30)
[2018-06-30] MEDS: NICOTINE 21MG PATCH. TD SCH (07:32)
[2018-06-30] MEDS: KETOROLAC 30 MG/ML VIAL. IV PRN (07:32)
[2018-06-30] MEDS: ACETAMINOPHEN 500 MG TABLET PO PRN (07:32)
[2018-06-30] MEDS: LACTOBACILLUS RHAMNOSUS GG 1 CAPSULE. PO SCH (07:32)
[2018-06-30] MEDS: VANCOMYCIN 750 MG in IV NORMAL SALINE 250ML 250 ML IV SCH (07:34)
[2018-06-30 07:55] LABS: HEMATOCRIT 33.4 % (36.0-47.0); RED BLOOD COUNT 3.55 x10^6/uL (3.50-5.40); WHITE BLOOD COUNT 9.2 x10^3/uL (4.0-11.0)
[2018-06-30 07:57] LABS: CREATININE 0.7 mg/dL (0.6-1.0); GFR 93.6; POTASSIUM 4.3 mmol/L (3.5-5.1)
[2018-06-30 08:02] LABS: VANC TR 4.7 mcg/mL (10.0-20.0)
[2018-06-30] MEDS: VANCOMYCIN PER PHARMACY MC PRN (08:48)
[2018-06-30 11:00] VITALS: BP 110/74
[2018-06-30 14:29] LABS: BARBITURATES NEG (NEG); BENZODIAZEPINES NEG (NEG); CANNABINOIDS NEG (NEG); COCAINE NEG (NEG); METHADONE NEG (NEG); OPIATES POS (NEG); PHENCYCLIDINE NEG (NEG)
[2018-06-30 14:30] LABS: AMPHETAMINE/METHAMPHETAMINE NEG (NEG)
[2018-06-30 15:30] VITALS: BP 114/72
[2018-06-30] MEDS ORDERED: VANCOMYCIN 750 MG in IV NORMAL SALINE 250ML 250 ML IV SCH (16:00)
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
== END 2018-06-30 16:10 | disposition short-term general hospital (02) | DRG 934 ==
LOC: ER 19:36 → ICU 21:30
PROVIDERS: ADMIT Internal Medicine; ATTEND Internal Medicine
DX: T24.301A Burn of third degree of unspecified site of right lower limb, except ankle and foot, initial encounter (principal); L03.115 Cellulitis of right lower limb; L97.219 Non-pressure chronic ulcer of right calf with unspecified severity; F15.10 Other stimulant abuse, uncomplicated; F17.210 Nicotine dependence, cigarettes, uncomplicated; F31.9 Bipolar disorder, unspecified; J45.909 Unspecified asthma, uncomplicated; Z86.14 Personal history of Methicillin resistant Staphylococcus aureus infection; Z91.19 Patient's noncompliance with other medical treatment and regimen; Z90.710 Acquired absence of both cervix and uterus; F41.9 Anxiety disorder, unspecified; G43.909 Migraine, unspecified, not intractable, without status migrainosus; X08.8XXA Exposure to other specified smoke, fire and flames, initial encounter; Z88.0 Allergy status to penicillin; Z88.2 Allergy status to sulfonamides; Z88.8 Allergy status to other drugs, medicaments and biological substances; Z90.49 Acquired absence of other specified parts of digestive tract; Z98.51 Tubal ligation status; Y93.89 Activity, other specified; Y92.89 Other specified places as the place of occurrence of the external cause; Y99.8 Other external cause status
CPT/HCPCS: 16020; 36415; 73590; 80048; 80076; 80202; 80307; 81001; 82550; 83690; 83735; 84443; 84484; 85007; 85025; 85027; 85379; 85610; 85730; 87040; 87071; 87075; 87086; 87186; 87641; 94640; 96365; 96372; 96375; 99406; J1885; J2185; J2270; J3370; J7050; J7120; J7620; 99285-25; J7030

== ENCOUNTER 2018-08-26 00:23 | Emergency (ER) | payer OTHER ==
[~2018-08-26] VITALS: Ht 157.5 cm; Wt 50.0 kg
[2018-08-26 00:23] VITALS: BP 118/74
[~2018-08-26 00:23] MED LIST changes: +ACETAMINOPHEN/COD PO; +ALBU2.5V8 PO; +DICY20TA3 PO; +DIVA250T14 PO; +IBUP400T18 PO; +SUMA50TA4 PO
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
[2018-08-26] MEDS ORDERED: BACITRACIN ZINC TOPICAL OINT PACKET. TP ONE ×2 (00:58→01:00)
[2018-08-26] MEDS ORDERED: ACETAMINOPHEN 500 MG TABLET PO ONE ×2 (01:15)
== END 2018-08-26 01:18 | disposition home or self-care (01) ==
LOC: ER 00:23
DX: L97.819 Non-pressure chronic ulcer of other part of right lower leg with unspecified severity (principal); Z91.19 Patient's noncompliance with other medical treatment and regimen; Z86.14 Personal history of Methicillin resistant Staphylococcus aureus infection; F41.9 Anxiety disorder, unspecified; J45.909 Unspecified asthma, uncomplicated; F31.9 Bipolar disorder, unspecified; G43.909 Migraine, unspecified, not intractable, without status migrainosus; F17.210 Nicotine dependence, cigarettes, uncomplicated; Z88.8 Allergy status to other drugs, medicaments and biological substances; Z88.2 Allergy status to sulfonamides; Z88.1 Allergy status to other antibiotic agents; Z91.041 Radiographic dye allergy status
CPT/HCPCS: 99283

== ENCOUNTER 2018-09-29 09:22 | Emergency (ER) | payer OTHER ==
[~2018-09-29] VITALS: Ht 157.5 cm; Wt 50.0 kg
[2018-09-29 09:39] VITALS: BP 133/83
--- NOTE | 2018-09-29 10:05 | PHYS DOC ---
Past History Past Medical History: Depression Past Surgical History: No Surgical History Smoking: Cigarettes, Greater than 1 pack/day Alcohol Use: None Drug Use: Methamphetamine Adult General Chief Complaint Chief Complaint: ABDOMINAL PAIN HPI HPI Patient is a 38 year old female here for abdominal pain. She states that this pain began 1 week ago and is located in the suprapubic area and in her back. She self reports a fever last night of 102.4F. She also reports nausea but denies vomiting and diarrhea. She has had UTI's in the past but states this one is worse than before. She also states that she is having urgency and burning with urination. Review of Systems Review of Systems Constitutional: Reports fever or chills [] Eyes: Denies change in visual acuity, redness, or eye pain [] Cardiovascular: No additional information not addressed in HPI [] GI: Reports abdominal pain, nausea, vomiting, bloody stools or diarrhea [] : Reports dysuria or hematuria [] Musculoskeletal: Reports back pain or joint pain [] Integument: Denies rash or skin lesions [] Neurologic: Denies headache, focal weakness or sensory changes [] Endocrine: Denies polyuria or polydipsia [] All other systems were reviewed and found to be within normal limits, except as documented in this note. Allergies Allergies Allergies Coded Allergies Type Severity Reaction Last Updated Verified Penicillins Allergy Intermediate 06/30/18 Yes olanzapine Allergy Intermediate 06/30/18 Yes sulfamethoxazole Allergy Intermediate 06/30/18 Yes trimethoprim Allergy Intermediate 06/30/18 Yes I S O L A T I O N *CONTACT* Allergy Unknown 07/06/18 Yes Uncoded Allergies Type Severity Reaction Last Updated Verified surinamese rice Allergy Unknown 08/19/17 Physical Exam Physical Exam Constitutional: Well developed, well nourished, no acute distress, non-toxic appearance. [] HENT: Normocephalic, atraumatic, bilateral external ears normal, oropharynx moist, no oral exudates, nose normal. [] Eyes: PERRLA, EOMI, conjunctiva normal, no discharge. [] Neck: Normal range of motion, no tenderness, supple, no stridor. [] Cardiovascular:Heart rate regular rhythm, no murmur [] Lungs & Thorax: Bilateral breath sounds clear to auscultation [] Abdomen: Bowel sounds normal, soft, tenderness to palpation in suprapubic region, Skin: Warm, dry, no erythema, no rash. [] Back: Bilateral CVA tenderness. [] Extremities: No tenderness, no cyanosis, no clubbing, ROM intact, no edema. [] Neurologic: Alert and oriented X 3, normal motor function, normal sensory function, no focal deficits noted. [] Psychologic: Affect normal, judgement normal, mood mildly agitated but redirectable Current Patient Data Vital Signs Vital Signs Date Time Temp Pulse Resp B/P (MAP) Pulse Ox O2 Delivery O2 Flow Rate FiO2 09/29/18 09:39 98.3 94 16 95 Room Air Lab Results BP 133/83 EKG EKG [] Radiology/Procedures Radiology/Procedures [] Course & Med Decision Making Course & Med Decision Making Pertinent Labs and Imaging studies reviewed. (See chart for details) []38-year-old female with dysuria back pain and suprapubic tenderness found to have UTI on urinalysis apparently does have a history of methamphetamine abuse. There is no focal midline back tenderness she has a definite UTI think is reasonable to treat her with ciprofloxacin. Considered other antibiotics first hours she has multiple allergies and Macrobid would not work given the CVA tenderness and presumed early pyelonephritis patient is well-appearing stable for outpatient management return precautions discussed Dragon Disclaimer Dragon Disclaimer This electronic medical record was generated, in whole or in part, using a voice recognition dictation system. Departure Departure: Impression: Primary Impression: Urinary tract infection Disposition: 01 HOME, SELF-CARE Condition: STABLE Referrals: SAMARIA HASTINGS (PCP) Scripts Ciprofloxacin Hcl (CIPROFLOXACIN HCL) 500 Mg Tablet 1 TAB PO BID for UTI, #20 TAB Prov: ANGELICA JAMES MD 09/29/18 ANGELICA JAMES MD September 29, 2018 10:05
[2018-09-29 10:55] LABS: BACTERIA,URINE MANY /HPF (0-FEW); BILIRUBIN,URINE NEG (NEG); CLARITY,URINE HAZY; COLOR,URINE YELLOW; GLUCOSE,URINE NEG (NEG); NITRITE,URINE POS (NEG); SQUAMOUS EPITHELIAL CELL,UR MOD /LPF; UROBILINOGEN,URINE 1 mg/dL (0.2 mg/dL); WBC,URINE >40 /HPF (0-4)
[2018-09-29] MEDS ORDERED: CIPR500T PO (11:08)
[2018-09-29] MEDS ORDERED: KETOROLAC 30 MG/ML VIAL. ONE (11:10)
[2018-09-29] MEDS: KETOROLAC 30 MG/ML VIAL. IM ONE (11:16)
== END 2018-09-29 11:44 | disposition home or self-care (01) ==
LOC: ER 09:22
DX: N39.0 Urinary tract infection, site not specified (principal); F32.9 Major depressive disorder, single episode, unspecified; F17.210 Nicotine dependence, cigarettes, uncomplicated; F15.10 Other stimulant abuse, uncomplicated; Z88.0 Allergy status to penicillin; Z88.2 Allergy status to sulfonamides; Z88.1 Allergy status to other antibiotic agents; Z91.041 Radiographic dye allergy status; Z88.8 Allergy status to other drugs, medicaments and biological substances
CPT/HCPCS: 81001; 81025; 87086; 96372; 99284; J1885

== ENCOUNTER 2018-12-15 15:45 | Emergency (ER) | payer OTHER ==
[~2018-12-15] VITALS: Ht 157.5 cm; Wt 53.1 kg
[~2018-12-15 15:45] MED LIST changes: +CIPR500T PO
[2018-12-15 16:00] VITALS: BP 80/32
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
[2018-12-15] MEDS ORDERED: KETOROLAC 15 MG/ML VIAL. IM ONE (17:15)
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
[2018-12-15] MEDS ORDERED: MELO7.5T29 PO (18:37)
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
== END 2018-12-15 18:45 | disposition home or self-care (01) ==
LOC: ER 15:45 → EEVIPCON 15:45 → ER 18:45
DX: T74.21XA Adult sexual abuse, confirmed, initial encounter (principal); M25.531 Pain in right wrist; M79.631 Pain in right forearm; R51 Headache; F17.210 Nicotine dependence, cigarettes, uncomplicated; Z88.0 Allergy status to penicillin; Z88.8 Allergy status to other drugs, medicaments and biological substances; Z91.041 Radiographic dye allergy status; Z88.2 Allergy status to sulfonamides
CPT/HCPCS: 70450; 70486; 73090; 96372; 99284; J1885